=== PATIENT | female | born 1980 | race Caucasian/White ===

== ENCOUNTER 2018-02-25 18:23 | Emergency (ER) | payer SELFPAY ==
[~2018-02-25] VITALS: Ht 157.5 cm; Wt 54.4 kg
[~2018-02-25 18:23] MED LIST: PREN1TAB39
--- OUTSIDE RECORDS SUMMARY | 2018-02-25 18:30 | XMS REPORT | Continuity of Care Document ---
Author Author [facility] Organization [facility] Address Unknown Phone Unavailable Allergies Active Description Code Type Severity Reaction Onset Reported/Identified Relationship to Patient Clinical Status Yes No Known Drug Allergies [id number] Drug Allergy Unknown N/A 10/21/2009 Medications There is no data. Problems Date Dx Coded Attending Type Code Diagnosis Diagnosed By 03/21/2012 V25.09 CONTRACEPTIVE COUNSELING - GENERAL 03/21/2012 V74.5 STD SCREEN 03/21/2012 V76.2 CERVICAL CANCER SCREENING (PAP SMEAR) 03/21/2012 ZACHERY HICKS APRN A V25.09 CONTRACEPTIVE COUNSELING - GENERAL 03/21/2012 ZACHERY HICKS APRN A V74.5 STD SCREEN 03/21/2012 ZACHERY HICKS APRN A V76.2 CERVICAL CANCER SCREENING (PAP SMEAR) 03/21/2012 JENNIFER HICKS APRNIDI A V25.09 CONTRACEPTIVE COUNSELING - GENERAL 03/21/2012 JENNIFER HICKS APRNIDI A V74.5 STD SCREEN 03/21/2012 ZACHERY HICKS APRN A V76.2 CERVICAL CANCER SCREENING (PAP SMEAR) 03/21/2012 ZACHERY HICKS APRN A V25.09 CONTRACEPTIVE COUNSELING - GENERAL 03/21/2012 JENNIFER HICKS APRNIDI A V74.5 STD SCREEN 03/21/2012 JENNIFER HICKS APRNIDI A V76.2 CERVICAL CANCER SCREENING (PAP SMEAR) 06/07/2013 JENNIFER HICKS APRNIDI A V76.10 BREAST CANCER SCREENING 06/07/2013 ZACHERY HICKS APRN A V76.10 BREAST CANCER SCREENING 06/07/2013 JENNIFER HICKS APRNIDI A V76.10 BREAST CANCER SCREENING 07/16/2013 ZACHERY HICKS APRN A 623.5 LEUKORRHEA NOT SPECIFIED INFECTIVE 07/16/2013 ZACHERY HICKS APRN A 625.9 PELVIC PAIN 07/16/2013 ZACHERY HICKS APRN A 623.5 LEUKORRHEA NOT SPECIFIED INFECTIVE 07/16/2013 FABIOLA ANNE, ZACHERY A 625.9 PELVIC PAIN 07/16/2013 FABIOLA ANNE, ZACHERY A 623.5 LEUKORRHEA NOT SPECIFIED INFECTIVE 07/16/2013 FABIOLA ANNE, ZACHERY A 625.9 PELVIC PAIN 09/10/2014 ZACHERY HICKS APRN A 996.76 IUD COMPLICATION - OTHER 11/08/2016 ZACHERY HICKS [employer] Ot 625.9 FEM GENITAL SYMPTOMS NOS 11/08/2016 ZACHERY HICKS [employer] Ot V25.42 IUD SURVEILLANCE 11/09/2016 ZACHERY HICKS [employer] SAL[employer] Ot 625.9 FEM GENITAL SYMPTOMS NOS 11/09/2016 ZACHERY HICKS [employer] SALES [employer]ANNER Ot V25.42 IUD SURVEILLANCE 11/17/2016 DANYELLE HORTA Ot F17.210 NICOTINE DEPENDENCE, CIGARETTES, UNCOMPL 11/17/2016 DANYELLE HORTA Ot R10.84 GENERALIZED ABDOMINAL PAIN 11/17/2016 DANYELLE HORTA Ot R50.9 FEVER, UNSPECIFIED 11/17/2016 DANYELLE HORTA Ot Z53.21 PROC/TRTMT NOT CRD OUT D/T PT LV BEF SEE 09/06/2017 ANIL CARVAJAL F12.11 CANNABIS ABUSE, IN REMISSION 09/06/2017 ANIL CARVAJAL R35.8 OTHER POLYURIA 09/06/2017 ANIL CARVAJAL Z00.01 ENCOUNTER FOR GENERAL ADULT MEDICAL EXAM W ABNORMAL FINDINGS 09/06/2017 ANIL CARVAJAL Z13.84 ENCOUNTER FOR SCREENING FOR DENTAL DISORDERS 09/06/2017 ANIL CARVAJAL Z83.3 FAMILY HISTORY OF DIABETES MELLITUS Procedures Code Description Performed By Performed On 72.9 INSTRUMENT DELIVERY NOS 10/21/2009 74.1 LOW CERVICAL 10/21/2009 05856 UA W/ CULTURE IF INDICATED 07/16/2013 13850 TRICHOMONAS (IN-HOUSE) 07/16/2013 13238 GC/CHLAM PROBE (STATE) 07/18/2013 32156 CULTURE UROGENITAL 07/20/2013 BVVAG BACTERIAL VAGINOSIS (IN- HOUSE) 10/03/2013 78789 US PELVIC (TRANSVAGINAL ONLY ) 09/10/2014 Obstetric Russell Curtis 09/10/2014 D1206 TOPICAL FLUORIDE VARNISH 09/06/2017 88376 URINALYSIS NONAUTO W/O SCOPE 09/06/2017 00346 Microalb/Creat Ratio, Randm Ur 09/07/2017 32316 URINE BACTERIA CULTURE 09/08/2017 Results There is no data. Encounters ACCT No. Visit Date/Time Discharge Status Pt. Type Provider Facility Loc./Unit Complaint [id number] 11/08/2016 18:41:00 11/08/2016 21:16:00 DIS Outpatient DANYELLE HORTA [facility] ER FEVER,ABD PAIN [id number] 09/16/2014 12:22:00 09/16/2014 23:59:59 CLS Outpatient ZACHERY HICKS APRN [facility] RAD IUD LOCATION [id number] 10/21/2009 05:47:00 Document Registration [id number] 09/06/2017 13:55:00 09/06/2017 23:59:59 CLS Outpatient ANIL CARVAJAL [id number] 01/16/2018 09:00:00 01/16/2018 23:59:59 CLS Outpatient [facility] [id number] 09/10/2014 14:44:00 09/10/2014 23:59:59 CLS Outpatient ZACHERY HICKS APRN [id number] 10/03/2013 09:24:00 10/03/2013 23:59:59 CLS Outpatient ZACHERY HICKS APRN [id number] 07/16/2013 16:22:00 07/16/2013 23:59:59 CLS Outpatient ZACHERY HICKS APRN [id number] 03/20/2013 08:46:00 Document Registration
--- OUTSIDE RECORDS SUMMARY | 2018-02-25 18:30 | XMS REPORT ---
Author Author DELANEY GUZMAN Organization [employer] Address Unknown Phone Unavailable Care Team Providers Care Health Tech Name Role Phone DELANEY GUZMAN CP Unavailable Allergies, Adverse Reactions, Alerts Substance Reaction Event Type N.K.D.A. Info Not Available Non Drug Allergy Problems Problem Type Condition Code Onset Dates Condition Status Assessment Acute maxillary sinusitis, recurrence not specified J01.00 Active Problem Other complications due to genitourinary device, implant, and graft 996.76 Active Problem Unspecified symptom associated with female genital organs 625.9 Active Problem Unspecified breast screening V76.10 Active Problem Other general counseling and advice for contraceptive management V25.09 Active Problem Screening examination for venereal disease V74.5 Active Problem Leukorrhea, not specified as infective 623.5 Active Problem Screening for malignant neoplasm of the cervix V76.2 Active Medications Medication Code System Code Instructions Start Date End Date Status Dosage Xanax [facility] [address]-82 1 mg Sep 10, 2014 1 tablet by Oral route 1 time per day PredniSONE [facility] [address]-13 20 MG Orally Once a day Nov 12, 2015 Nov 17, 2015 as directed Sprintec 28 [facility] [address]-38 0.25-35 MG-MCG Orally Once a day 1 tablet Fluoxetine HCl [facility] [address]-51 20 MG Orally Once a day 1 capsule in the morning Augmentin [facility] [address]-68 875-125 MG Orally every 12 hrs Nov 12, 2015 Nov 22, 2015 1 tablet Procedures Procedure Coding System Code Date Office Visit, Est Pt., Level 3 CPT-4 78808 Nov 12, 2015 Vital Signs Date/Time: Nov 12, 2015 Temperature 97.5 F Weight 134.5 lbs Height 64 in BMI 23.08 Index Blood Pressure Diastolic 78 mmHg Blood Pressure Systolic 116 mmHg Cardiac Monitoring Heart Rate 56 bpm Results No Known Results Summary Purpose [employer] Submission
--- NOTE | 2018-02-25 19:09 | ED EENT ---
History of Present Illness General Chief Complaint: Eye Problems Stated Complaint: LEFT EYE PROBLEMS Nursing Triage Note: Patient advises pain in her left eye for several days that has become progressively worse. She c/o redness, pain and burning and denies previous injury. Source: patient Exam Limitations: no limitations History of Present Illness Date Seen by Provider: Feb 25, 2018 Time Seen by Provider: 19:09 Initial Comments 37 yo female patient presents to the ED with c/o left eye pain and redness for 3 days. States she has been sleeping in her contacts. Woke up with left eye redness and feeling like sandpaper. now she has mild light sensitivity. denies drainage or known injury. Patient sees [facility] in [place], [place] for eye exams. Timing/Duration: other (3 day onset) Location: eye (L) Prearrival Treatment: no prearrival treatment Allergies and Home Medications Allergies Coded Allergies: No Known Drug Allergies (Verified , 10/21/09) Home Medications Unable to Obtain Active Prescriptions or Reported Meds Patient Home Medication List Home Medication List Reviewed: Yes Review of Systems Constitutional: No chills, No dizziness, No fever, No malaise Eyes: See HPI, Denies Blindness, Denies Blurred Vision, Denies Drainage, Denies Decreased Acuity, Foreign Body Sensation, Inflammation, Pain, Photophobia , Denies Vision Changes, Contact Lenses Ears: No Symptoms Reported Nose: no symptoms reported Mouth: no symptoms reported Throat: no symptoms reported Respiratory: no symptoms reported Cardiovascular: no symptoms reported Gastrointestinal: no symptoms reported Musculoskeletal: no symptoms reported Skin: no symptoms reported Neurological: No Symptoms Reported All Other Systems Reviewed Negative Unless Noted: Yes (Negative excepted noted.) Past Hvizoze-Lwaqrc-Dkptkd Hx Patient Social History Alcohol Use: Denies Use Recreational Drug Use: Yes (clean for 5 yrs) Type Used: Cigarettes Recent Foreign Travel: No Contact w/Someone Who Travel: No Recent Infectious Disease Expo: No Recent Hopitalizations: No Physical Abuse: No Sexual Abuse: No Seasonal Allergies Seasonal Allergies: No Surgeries History of Surgeries: Yes (4 c-sections) Surgeries: Section Respiratory History of Respiratory Disorde: No Cardiovascular History of Cardiac Disorders: No Neurological History of Neurological Disord: No Reproductive System Hx Reproductive Disorders: Yes Sexually Transmitted Disease: Yes Genitourinary History of Genitourinary Disor: No Gastrointestinal History of Gastrointestinal Di: Yes (Abd pain hx-does not disclose info) Musculoskeletal History of Musculoskeletal Dis: No Endocrine History of Endocrine Disorders: No HEENT History of HEENT Disorders: No Cancer History of Cancer: No Psychosocial History of Psychiatric Problem: No Suicide Risk Score: 0 Integumentary History of Skin or Integumenta: No Blood Transfusions History of Blood Disorders: No Reviewed Nursing Assessment Reviewed/Agree w Nursing PMH: Yes Family Medical History Significant Family History: No Pertinent Family Hx Physical Exam Vital Signs Vital Signs - First Documented 02/25/18 18:53 Temp 98.8 Pulse 86 Resp 14 B/P (MAP) 152/96 (114) Pulse Ox 98 O2 Delivery Room Air General Appearance: WD/WN, no apparent distress Eyes: right eye normal inspection, left eye conjunctival inflammation, bilateral eye PERRL, bilateral eye EOMI Ears: bilateral ear auricle normal, bilateral ear canal normal, bilateral ear TM normal Nose: normal inspection Mouth/Throat: normal mouth inspection, pharynx normal Neck: supple, normal inspection Cardiovascular: regular rate, rhythm, no murmur Respiratory: lungs clear, normal breath sounds, no respiratory distress, no accessory muscle use Neurologic/Psychiatric: alert, normal mood/affect, oriented x 3 Skin: normal color, warm/dry Eye : Location: left eye Anesthesia (gtts): Tetracaine Intraocular Pressure: Per Tonopen (left eye pressures: 8 mmHg, 12 mmHg, and 12 mmHg) Progress/Procedure Conclusion fluorescein stain is negative for corneal abrasion or ulcer. Progress/Results/Core Measures Results/Orders My Orders Orders - DANYELLE CORDERO Fluorescein Strips (Smtxz-J-Buruja) (02/25/18 19:15) Tetracaine 0.5% Ophth Brenda Sdv (Tetracai (02/25/18 19:15) Rx-Ciprofloxacin Ophth Soln (Rx-Ciloxan (02/25/18 19:37) Rx-Prednisolone Acetate (Rx-Pred Forte 1 (02/25/18 19:37) Medications Given in ED Current Medications Medications Dose Ordered Sig/Anthony Route Start Time Stop Time Status Last Admin Dose Admin Fluorescein Sodium 1 mg ONCE ONCE OU 02/25/18 19:15 02/25/18 19:16 DC 02/25/18 19:23 1 MG Tetracaine HCl 1 OR 2 DROPS INTO AFFEC... ONCE ONCE OP 02/25/18 19:15 02/25/18 19:16 DC 02/25/18 19:23 2 ML Vital Signs/I&O Vital Sign - Last 12Hours 02/25/18 02/25/18 18:53 19:51 Temp 98.8 98.8 Pulse 86 80 Resp 14 14 B/P (MAP) 152/96 (114) 145/89 (114) Pulse Ox 98 99 O2 Delivery Room Air Room Air Blood Pressure Mean: 114 Departure Impression Impression: Primary Impression: Conjunctivitis Qualified Codes: H10.32 - Unspecified acute conjunctivitis, left eye Disposition: HOME, SELF-CARE Condition: Improved Departure-Patient Inst. Decision time for Depature: 19:42 Referrals: NO,LOCAL PHYSICIAN (PCP/Family) Primary Care Physician Patient Instructions: Conjunctivitis ([place]keye) (DC) Add. Discharge Instructions: All discharge instructions reviewed with patient and/or family. Voiced understanding. Medications as directed. Tylenol over the counter as directed for pain. Motrin 800 mg by mouth every 8 hours as needed for pain. 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 Call tomorrow morning for appointment time. Return to the emergency department for worsened pain, vision changes, drainage, fever, headache, or any other concerns. Scripts Unable to Obtain Active Prescriptions or Reported Meds Work/School Note: Local Medical Staff Listing, Work Release Form Date Seen in the Emergency Department: Feb 25, 2018 Return to Work: Feb 27, 2018 DANYELLE CORDERO Feb 25, 2018 19:09
[2018-02-25] MEDS ORDERED: FLUORESCEIN (FLUOR-I-STRIPS) 1 MG STRP OU ONE (19:15)
[2018-02-25] MEDS ORDERED: TETRACAINE 0.5% OPHTH SOLN 4 ML BTL (SINGLE DOSE ONLY) OP ONE (19:15)
[2018-02-25] MEDS ORDERED: RX-PREDNISOLONE (PRED FORTE) 1% OPTH 5 ML BTL OP STA (19:37)
[2018-02-25] MEDS ORDERED: RX-CIPROFLOXACIN (CILOXAN) 0.3% OP SOLN 2.5 ML OP STA (19:37)
[2018-02-25 19:51] VITALS: BP 145/89
== END 2018-02-25 19:49 | disposition home or self-care (01) ==
LOC: EDUNIT# 18:23 → ER 18:26
DX: H10.9 Unspecified conjunctivitis (principal); Z87.59 Personal history of other complications of pregnancy, childbirth and the puerperium
CPT/HCPCS: 99283

== ENCOUNTER 2022-07-31 01:33 | Emergency (ER) | payer OTHER ==
[~2022-07-31] VITALS: Ht 160 cm; Wt 56.0 kg
[~2022-07-31 01:33] MED LIST changes: +CITA20TA12 PO; +FLUC150T PO; +SULF1TAB38 PO
[2022-07-31 01:41] VITALS: BP 126/87
[2022-07-31] MEDS ORDERED: LOSA25TA41 PO (01:48)
[2022-07-31] MEDS ORDERED: NITR-65 PO (01:48)
[2022-07-31 01:59] LABS: BILIRUBIN,URINE NEGATIVE (NEGATIVE); CLARITY,URINE CLEAR; COLOR,URINE YELLOW; GLUCOSE, URINE (UA) NEGATIVE (NEGATIVE); KETONES,URINE NEGATIVE (NEGATIVE); LEUKOCYTE ESTERASE ,URINE NEGATIVE (NEGATIVE); NITRITE,URINE NEGATIVE (NEGATIVE); PROTEIN,URINE NEGATIVE (NEGATIVE)
[2022-07-31 02:07] LABS: BACTERIA,URINE TRACE /HPF; WBC,URINE 0-2 /HPF
[2022-07-31] MEDS ORDERED: IBUPROFEN 800 MG (MOTRIN) TAB PO ONE (02:30)
[2022-07-31] MEDS ORDERED: IBUP-1780 PO (02:48)
[2022-07-31] MEDS ORDERED: CIPR500T5 PO (02:48)
[2022-07-31] MEDS ORDERED: PHEN-640 PO (02:48)
--- NOTE | 2022-07-31 02:49 | ED General ---
General Chief Complaint: COVID19 Suspect/Confirmed Stated Complaint: MIGRAINE,UTI Nursing Triage Note: C/O UTI SX, HEADACHE, COVID EXPOSURE. SEEN AT [facility] 07/27/22 FOR SAME. NEGATIVE COVID TEST. STARTED ON MACROBID WITHOUT IMPROVEMENT. NEEDS WORK NOTE Allergies and Home Medications Allergies Coded Allergies: No Known Drug Allergies (Verified , 10/21/09) Patient Home Medication List Ciprofloxacin HCl (Ciprofloxacin HCl) 500 Mg Tablet, 500 MG PO BID Prescribed by: ELVIRA DASILVA on 07/31/22247 Ibuprofen (Ibuprofen) 800 Mg Tablet, 800 MG PO Q6H PRN for PAIN-MILD Prescribed by: ELVIRA DASILVA on 07/31/22247 Losartan Potassium (Losartan Potassium) 25 Mg Tablet, Unknown Dose PO DAILY, (Reported) Entered as Reported by: BRIANNA DENT on 07/31/22147 Last Action: New Order Nitrofurantoin Monohyd/M-Cryst (Macrobid 100 mg Capsule) 100 Mg Capsule, 1 TAB PO, (Reported) Entered as Reported by: BRIANNA DENT on 07/31/22147 Last Action: New Order Phenazopyridine HCl (Pyridium) 200 Mg Tablet, 1 TAB PO TID Prescribed by: ELVIRA DASILVA on 07/31/22247 Discontinued Medications Citalopram Hydrobromide (Celexa) 20 Mg Tablet, 20 MG PO DAILY, (Reported) Discontinued Reason: No Longer Taking Entered as Reported by: LORRAINE DE LA CRUZ on 04/13/18835 Last Action: Discontinued Fluconazole (Diflucan) 150 Mg Tablet, 150 MG PO ONCE PRN for Yeast Infection Discontinued Reason: No Longer Taking Prescribed by: CLINT BROOKS on 04/14/18826 Last Action: Discontinued Sulfamethoxazole/Trimethoprim (Bactrim Ds Tablet) 1 Each Tablet, 1 EACH PO BID Discontinued Reason: No Longer Taking Prescribed by: CLINT BROOKS on 04/14/18826 Last Action: Discontinued Past Topdxsw-Dwvtfc-Gjpzxx Hx Patient Social History Tobacco Use?: Yes Substance use?: No Alcohol Use?: Yes Alcohol Frequency: Once in a while Pt feels they are or have been: No Immunizations Up To Date Tetanus Booster (TDap): Unknown First/Initial COVID19 Vaccinat: NONE Seasonal Allergies Seasonal Allergies: No Past Medical History Surgery/Hospitalization HX: C-SECT X4, HTN Surgeries: Yes (4 c-sections) Section Respiratory: No Currently Using CPAP: No Currently Using BIPAP: No Cardiac: No Neurological: No Reproductive Disorders: Yes Sexually Transmitted Disease: Yes Genitourinary: No Gastrointestinal: Yes (Abd pain hx-does not disclose info; Hep C +) Musculoskeletal: No Endocrine: No HEENT: No Cancer: No Psychosocial: Yes Anxiety, Depression Integumentary: No Blood Disorders: Yes (Hep C +) Family Medical History No Pertinent Family Hx Physical Exam Vital Signs Vital Signs - First Documented 07/31/22 01:41 Temp 36.5 Pulse 96 Resp 16 B/P (MAP) 126/87 (100) Pulse Ox 100 O2 Delivery Room Air Capillary Refill : Less Than 3 Seconds Height, Weight, BMI Height: 5'3.00" Weight: 117lbs. 0.0oz. 53.552814bm; 21.00 BMI Method:Stated Progress/Results/Core Measures Suspected Sepsis SIRS Temperature: Pulse: 96 Respiratory Rate: 16 Blood Pressure 126 /87 Mean: 100 Results/Orders Lab Results Laboratory Tests Test 07/31/22 01:46 07/31/22 01:57 Range/Units Urine Color YELLOW Urine Clarity CLEAR Urine pH 6.0 5-9 Urine Specific Clutier 1.015 L 1.016-1.022 Urine Protein NEGATIVE NEGATIVE Urine Glucose (UA) NEGATIVE NEGATIVE Urine Ketones NEGATIVE NEGATIVE Urine Nitrite NEGATIVE NEGATIVE Urine Bilirubin NEGATIVE NEGATIVE Urine Urobilinogen 0.2 < = 1.0 MG/DL Urine Leukocyte Esterase NEGATIVE NEGATIVE Urine RBC (Auto) NEGATIVE NEGATIVE Urine RBC NONE /HPF Urine WBC 0-2 /HPF Urine Squamous Epithelial Cells 5-10 /HPF Urine Crystals NONE /LPF Urine Bacteria TRACE /HPF Urine Casts NONE /LPF Urine Mucus SMALL H /LPF Urine Culture Indicated NO Influenza Type A (RT-PCR) Not Detected Not Detecte Influenza Type B (RT-PCR) Not Detected Not Detecte SARS-CoV-2 RNA (RT-PCR) Not Detected Not Detecte My Orders Orders - ELVIRA DASILVA DO Ua Culture If Indicated (07/31/22 01:52) Covid 19 Inhouse Test (07/31/22 01:52) Influenza A And B By Pcr (07/31/22 01:52) Isolation Central Supply Req (07/31/22 01:52) Ibuprofen Tablet (Motrin Tablet) (07/31/22 02:30) Medications Given in ED Current Medications Medications Dose Ordered Sig/Anthony Route Start Time Stop Time Status Last Admin Dose Admin Ibuprofen 800 mg ONCE ONCE PO 07/31/22 02:30 07/31/22 02:31 DC 07/31/22 02:30 800 MG Vital Signs/I&O 07/31/22 01:41 Temp 36.5 Pulse 96 Resp 16 B/P (MAP) 126/87 (100) Pulse Ox 100 O2 Delivery Room Air Capillary Refill : Less Than 3 Seconds Blood Pressure Mean: 100 Departure Impression Primary Impression: COVID LIKE SYMPTOMS Additional Impression: Dysuria Disposition: HOME, SELF-CARE Condition: Stable Departure-Patient Inst. Decision time for Depature: 02:45 Referrals: RAMONITA BLOOM (PCP) Primary Care Physician Patient Instructions: COVID-19 Tests, Dysuria, Adult (DC) Add. Discharge Instructions: LOTS OF CLEAR LIQUIDS--NO COFFEE, POP OR TEA TYLENOL 1 GRAM 4 TIMES A DAY FOR PAIN OR FEVER TAKE YOUR BLOOD PRESSURE MEDICATION EVERY DAY FOLLOW UP WITH [facility] IN 3 DAYS IF NO BETTER All discharge instructions reviewed with patient and/or family. Voiced understanding. Scripts Phenazopyridine HCl (Pyridium) 200 Mg Tablet 1 TAB PO TID, #15 TAB Prov: ELVIRA DASILVA DO 07/31/22 Ciprofloxacin HCl (Ciprofloxacin HCl) 500 Mg Tablet 500 MG PO BID, #14 TAB Prov: ELVIRA DASILVA DO 07/31/22 Ibuprofen (Ibuprofen) 800 Mg Tablet 800 MG PO Q6H PRN for PAIN-MILD, #20 TAB Prov: ELVIRA DASILVA DO 07/31/22 Work/School Note: Work Release Form Date Seen in the Emergency Department: Jul 31, 2022 Return to Work: Aug 02, 2022 ELVIRA DASILVA DO Jul 31, 2022 02:49
== END 2022-07-31 02:53 | disposition home or self-care (01) ==
LOC: EDUNIT# 01:33 → ER 01:37
DX: R30.0 Dysuria (principal); R51.9 Headache, unspecified; Z20.822 Contact with and (suspected) exposure to COVID-19; Z28.310 Unvaccinated for COVID-19
CPT/HCPCS: 81000; 84703; 87636; 99283